=== PATIENT | female | born 1940 | race Hispanic/Latino ===

== ENCOUNTER 2020-11-27 12:00 | Outpatient (CLI) | payer MEDICARE, BC | END 2020-11-27 12:01 | disposition home or self-care (01) | LOC: CSHRAD 12:00 | PROVIDERS: ATTEND Allergy & Immunology | DX: J12.9 Viral pneumonia, unspecified (principal) | CPT/HCPCS: 71046 ==

== ENCOUNTER 2024-06-27 09:46 | Outpatient (CLI) | payer MEDICARE, BC | END 2024-06-27 09:47 | disposition home or self-care (01) | LOC: CSHMAMMO 09:46 | PROVIDERS: ATTEND Nurse Practitioner Family | DX: Z78.0 Asymptomatic menopausal state (principal); M85.852 Other specified disorders of bone density and structure, left thigh | CPT/HCPCS: 77080 ==